=== PATIENT | female | born 1955 | race African-American/Black ===

== ENCOUNTER 2021-10-07 14:49 | Emergency (ER) | payer MEDICARE, BC | END 2021-10-07 15:45 | disposition home or self-care (01) | LOC: BURERS 14:49 | DX: I10 Essential (primary) hypertension (principal); Z79.899 Other long term (current) drug therapy | CPT/HCPCS: 99283 ==

== ENCOUNTER → 2024-03-17 | Emergency (ER) | payer MEDICARE ==
[~2024-03-17] MED LIST: Acetaminophen 500 MG TAB ONE
[2024-03-17 22:39] LABS: Influenza A by NAA Not Detected (NotDetected); Influenza B by NAA Not Detected (NotDetected); SARS-CoV-2 NAA Rapid Test DETECTED (NotDetected)
== END ==
LOC: BURERS 21:23
DX: U07.1 COVID-19 (principal); I10 Essential (primary) hypertension
CPT/HCPCS: 0240U; 71045; 99283

== ENCOUNTER 2024-07-09 20:22 | Emergency (ER) | payer MEDICARE ==
[2024-07-09] MEDS ORDERED: Aspirin Chewable 81 MG TAB ONE (20:41)
[2024-07-09 21:02] LABS: #Basophils 0.1 thou/uL (0.0-0.2); #Monocytes 0.5 thou/uL (0.11-0.59); #Neutrophils 8.5 thou/uL (1.40-6.50); %Basophils 1.1 % (0.0-1.0); %Eosinophils 0.2 % (0.0-10.0); %Monocytes 4.7 % (0.0-10.0); %Neutrophils 75.9 % (42.0-75.0); Hematocrit 43.3 % (36.0-47.0); Mean Corpuscular HGB CONC 30.1 g/dL (32.0-36.0); Mean Corpuscular Hemoglobin 26.6 pg (27.0-31.0); Mean Corpuscular Volume 88.5 fl (78.0-98.0); Mean Platelet Volume 9.8 fL (7.4-10.4); Platelet Count 319 10x3/uL (130-400); RBC Distribution Width 12.2 % (11.5-14.5); Red Blood Cell (RBC) Count 4.89 mill/uL (4.20-5.40); White Blood Cell (WBC) Count 11.3 10x3/uL (4.8-10.8)
[2024-07-09 21:15] LABS: ALT (SGPT) 10 U/L (8-55); AST (SGOT) 12 U/L (5-34); Albumin 3.4 g/dL (3.4-4.8); Alkaline Phosphatase 97 U/L (40-110); Anion Gap 15 mmol/L (10-20); BUN (Urea Nitrogen) 18 mg/dL (9.8-20.1); Bilirubin, Total 0.3 mg/dL (0.2-1.2); Calc. Creatinine Clearance 0 mL/min (70-130); Calcium 9.7 mg/dL (7.8-10.44); Carbon Dioxide 22 mmol/L (23-31); Chloride 111 mmol/L (98-107); Estimated GFR 42; Globulin 4.1 g/dL (2.4-3.5); Glucose 109 mg/dL (80-115); Potassium 3.8 mmol/L (3.5-5.1); Protein, Total 7.5 g/dL (5.8-8.1); Sodium 144 mmol/L (136-145)
[2024-07-09 21:17] LABS: Troponin I 0.012 ng/mL (< 0.028)
== END 2024-07-09 21:49 | disposition home or self-care (01) ==
LOC: BURERS 20:22
DX: R00.2 Palpitations (principal); I12.9 Hypertensive chronic kidney disease with stage 1 through stage 4 chronic kidney disease, or unspecified chronic kidney disease; N18.9 Chronic kidney disease, unspecified
CPT/HCPCS: 36415; 71045; 80053; 84484; 85025; 93005